=== PATIENT | female | born 1995 | race Asian ===

== ENCOUNTER 2017-02-09 07:11 | Inpatient (IN) | payer OTHER ==
[~2017-02-09] VITALS: Ht 157.5 cm; Wt 86.7 kg
[2017-02-09] VITALS (11 sets, daily range): BP systolic 102–121; BP diastolic 62–70
[2017-02-09] MEDS: miSOPROStol 50 MCG 1/2 TAB (S0191) PO SCH ×2 (10:18→14:21)
[2017-02-09 10:44] LABS: MEAN CORPUSCULAR HGB CONC 34.4 g/dl (32.0-36.5); MEAN CORPUSCULAR VOLUME 87.4 fl (80.0-96.0); RED CELL DISTRIBUTION WIDTH 19.5 % (11.5-14.5); WHITE BLOOD COUNT 5.5 K/mm3 (4.0-10.0)
[2017-02-09] MEDS ORDERED: OXYTOCIN DRIP 30 UNITS in APPROPRIATE DILUENT 1 EA IV SCH (21:45)
[2017-02-09] MEDS ORDERED: diphenhydrAMINE 25 MG CAP PO PRN (22:45)
[2017-02-10] VITALS (48 sets, daily range): BP systolic 94–146; BP diastolic 50–85
[2017-02-10] MEDS ORDERED: BUTORPHANOL 2 MG/ML INJ (J0595) IV ONE (02:30)
[2017-02-10] MEDS ORDERED: PROMETHAZINE INJ 25 MG/ML VIAL (J2550) IV ONE ×2 (02:30→10:45)
[2017-02-10] MEDS ORDERED: NALBUPHINE HCL 10 MG/ML AMP (J2300) IV ONE (10:45)
[2017-02-10] MEDS: LR 1,000 ML IV SCH ×2 (13:15→17:26)
[2017-02-10] MEDS ORDERED: FENTANYL 2MCG/ML ROPIVACAINE 0.2% IN 0.9% NACL 200ML IVBAG As Ordered ONE (16:44)
[2017-02-10] MEDS ORDERED: EPIDURAL/PCA KEYS XX PRN (18:00)
[2017-02-10] MEDS ORDERED: LACTATED RINGER'S 1000 ML IV PRN (18:00)
[2017-02-10] MEDS ORDERED: NALOXONE INJ 0.4 MG/1 ML VIAL (J2310) IV PRN (18:00)
[2017-02-10] MEDS ORDERED: EPIDURAL COMMENT XX SCH (18:00)
[2017-02-10] MEDS ORDERED: ONDANSETRON 4MG/2ML VIAL (J2405) IV PRN (18:00)
[2017-02-10] MEDS ORDERED: ePHEDrine SULFATE 25 MG/5 ML(5MG/ML) SYRINGE IV PRN (18:00)
[2017-02-10] MEDS ORDERED: diphenhydrAMINE INJ 50MG/ML VIAL (J1200) IV PRN (18:00)
[2017-02-10] MEDS ORDERED: REFRIGERATOR IV KEYS XX PRN (18:00)
[2017-02-10] MEDS ORDERED: FENTANYL/ROPIVACAINE/NACL BAG 200 ML EPIDURAL SCH (18:00)
--- NOTE | 2017-02-10 20:24 | IPNPDOC ---
Text Note Date of Service The patient was seen on 02/10/17. NOTE SBAR from MAJ Ferrell at ~1900. IOL at 41 wks. Doing well with an epidural On 14 mu/min pitocin Cx /-2, SROM clr fluid noted with check Doing well, will check in 2-3 hrs Sessions VS,Sherin, I+O VS, Sherin, I+O Vital Signs Date Time Temp Pulse Resp B/P (MAP) Pulse Ox O2 Delivery O2 Flow Rate FiO2 02/10/17 18:51 75 18 97/53 (68) 02/10/17 17:56 99.4 SESSIONS,ALENA Julien MD Feb 10, 2017 20:24
--- NOTE | 2017-02-10 23:04 | IPNPDOC ---
Text Note Date of Service The patient was seen on 02/10/17. NOTE NST Cat 1, reg ctx's. Pit at the same level. Cx unchanged, arch and pelvic outlet very narrow IUPC placed D/W the pt that I am concerned due to her pelvic exam about labor progression RN to incr the pitocin, OK to go >20, will check in 4 hrs, or sooner if 2 hrs of adeq MVU's obtained. Sessions VS,Sherin, I+O VSSheirn, I+O Vital Signs Date Time Temp Pulse Resp B/P (MAP) Pulse Ox O2 Delivery O2 Flow Rate FiO2 02/10/17 18:51 75 18 97/53 (68) 02/10/17 17:56 99.4 SESSIONS,ALENA Julien MD Feb 10, 2017 23:04
[2017-02-11] VITALS (25 sets, daily range): BP systolic 86–115; BP diastolic 50–66
[2017-02-11] MEDS ORDERED: ACETAMINOPHEN TAB 650MG DOSE (2X325MG) PO ONE (01:30)
--- NOTE | 2017-02-11 01:50 | IPNPDOC ---
Text Note Date of Service The patient was seen on 02/11/17. NOTE NST Cat 1. Has been on pitocin almost 24 hrs. Just given 650 mg tylenol for a T low 100's, not a fever. MVU's cont to be inadequate. Receptors may be flooded, will 1/2 her pit and see what happens with ctx strength/frequency. Sessions VS,Sherin, I+O VS, Sherin I+O Vital Signs Date Time Temp Pulse Resp B/P (MAP) Pulse Ox O2 Delivery O2 Flow Rate FiO2 02/10/17 18:51 75 18 97/53 (68) 02/10/17 17:56 99.4 I&O- Last 24 Hours up to 6 AM 02/11/17 05:59 Intake Total 1000 ml Output Total 1250 ml Balance -250 ml SESSIONS,ALENA Julien MD Feb 11, 2017 01:50
--- NOTE | 2017-02-11 03:16 | IPNPDOC ---
Text Note Date of Service The patient was seen on 02/11/17. NOTE Feeling more pressure NST Cat 1 Cx 8/100/0, cx mostly on the right recheck in 2 hrs, sooner prn Sessions VS,Sherin, I+O VSSherin, I+O Vital Signs Date Time Temp Pulse Resp B/P (MAP) Pulse Ox O2 Delivery O2 Flow Rate FiO2 02/10/17 18:51 75 18 97/53 (68) 02/10/17 17:56 99.4 I&O- Last 24 Hours up to 6 AM 02/11/17 06:00 Intake Total 1000 ml Output Total 1250 ml Balance -250 ml SESSIONS,ALENA Julien MD Feb 11, 2017 03:16
--- NOTE | 2017-02-11 06:39 | IPNPDOC ---
Text Note Date of Service The patient was seen on 02/11/17. NOTE NST Cat 1, MVU's improved over last few hours, more periods of adequacy than not Cx with AL/100/+1/OP, confirmed by TAUS (both orbits noted at straight OP) a/p: Long disc with pt, I am not optimistic of her chances at vaginal delivery with the shape of her pelvis and now also OP. I will allow her to push for 30-60 min to see if the lip disappears, but if does not happen and if significant descent not noted, then will recommend a Primary and avoid 3-4 hrs pushing that would increase her risk of complications with ( deep arrest/inability to deliver the head/uterine incision extensions, etc). Sessions VS,Sherin, I+O VSSherin, I+O Vital Signs Date Time Temp Pulse Resp B/P (MAP) Pulse Ox O2 Delivery O2 Flow Rate FiO2 02/10/17 18:51 75 18 97/53 (68) 02/10/17 17:56 99.4 I&O- Last 24 Hours up to 6 AM 02/11/17 06:00 Intake Total 1000 ml Output Total 1250 ml Balance -250 ml SESSIONS,ALENA Julien MD Feb 11, 2017 06:39
[2017-02-11] MEDS ORDERED: BICITRA 30ML SOLN UDC PO ONE (08:00)
[2017-02-11] MEDS: PRENATAL VITAMINS CHEWABLE TABLET PO SCH (09:00)
[2017-02-11] MEDS ORDERED: dexameTHASONE 4 MG/ML 1ML VIAL (J1100) As Ordered ONE ×2 (09:07→09:14)
[2017-02-11] MEDS ORDERED: SODIUM BICARBONATE 8.4% INJ 50 ML SYRINGE As Ordered ONE (09:07)
[2017-02-11] MEDS ORDERED: MORPHINE PRES-FREE INJ 10 MG/10 ML VIAL (J2274) As Ordered ONE (09:07)
[2017-02-11] MEDS ORDERED: ONDANSETRON 4MG/2ML VIAL (J2405) As Ordered ONE ×2 (09:07→09:14)
[2017-02-11] MEDS ORDERED: LIDOCAINE 2% W/EPIN INJ 20ML **PRES FREE As Ordered ONE ×2 (09:07→09:19)
[2017-02-11] MEDS ORDERED: OXYTOCIN INJ 10 UNITS/ML VIAL (J2590) As Ordered ONE (09:07)
[2017-02-11] MEDS ORDERED: KETOROLAC 60 MG/2 ML VIAL (J1885) As Ordered ONE (09:07)
[2017-02-11] MEDS ORDERED: METOCLOPRAMIDE INJ 10MG/2ML VIAL (J2765) As Ordered ONE (09:14)
[2017-02-11] MEDS ORDERED: NALBUPHINE HCL 10 MG/ML AMP (J2300) IV PRN ×2 (09:15→10:15)
[2017-02-11] MEDS ORDERED: NALOXONE INJ 0.4 MG/1 ML VIAL (J2310) IV PRN ×2 (09:15)
[2017-02-11] MEDS ORDERED: METOCLOPRAMIDE INJ 10MG/2ML VIAL (J2765) IV PRN ×2 (09:15→10:00)
[2017-02-11] MEDS ORDERED: ONDANSETRON 4MG/2ML VIAL (J2405) IV PRN ×2 (09:15→10:15)
[2017-02-11] MEDS: LR 1,000 ML IV SCH ×2 (09:49→19:04)
[2017-02-11] MEDS: OXYTOCIN DRIP 30 UNITS in APPROPRIATE DILUENT 1 EA IV SCH ×2 (09:49→13:49)
[2017-02-11] MEDS ORDERED: OXYTOCIN 30 UNITS IN 0.9% NaCl 500ML IV BAG (J2590) As Ordered ONE (09:52)
[2017-02-11] MEDS ORDERED: METHYLERGONOVINE MALEATE 0.2 MG/ML VIAL (J2210) IM ONE (10:00)
[2017-02-11] MEDS ORDERED: MEASLES,MUMPS,RUBELLA VACCINE INJ (MMR-II) (90707) SC SCH (10:00)
[2017-02-11] MEDS ORDERED: RHOGAM 300 MCG (1500 IU) INJ (J2790) IM SCH (10:00)
[2017-02-11] MEDS ORDERED: PERCOCET 5MG/325MG TAB PO PRN (10:00)
[2017-02-11] MEDS ORDERED: MEPERIDINE INJ 25 MG/ML VIAL (J2175) IV PRN (10:15)
[2017-02-11] MEDS ORDERED: fentaNYL 100 MCG/2 ML INJECTION (J3010) IV PRN (10:15)
[2017-02-11] MEDS ORDERED: LR 1,000 ML IV SCH (10:15)
[2017-02-11] MEDS: PERCOCET 5MG/325MG TAB PO PRN ×2 (12:44→18:12)
[2017-02-11] MEDS: KETOROLAC 30 MG/ML VIAL (J1885) IV SCH ×2 (15:07→21:02)
[2017-02-11] MEDS: DOCUSATE SODIUM 100 MG CAP PO SCH (21:02)
[2017-02-12] MEDS: LR 1,000 ML IV SCH ×2 (01:49→09:49)
[2017-02-12 02:15] VITALS: BP 93/55
[2017-02-12] MEDS: KETOROLAC 30 MG/ML VIAL (J1885) IV SCH ×2 (02:42→08:52)
[2017-02-12 06:05] VITALS: BP 92/50
[2017-02-12 07:41] LABS: MEAN CORPUSCULAR HEMOGLOBIN 29.4 pg (27.0-33.0); MEAN CORPUSCULAR HGB CONC 33.6 g/dl (32.0-36.5); MEAN CORPUSCULAR VOLUME 87.5 fl (80.0-96.0); RED CELL DISTRIBUTION WIDTH 19.3 % (11.5-14.5); WHITE BLOOD COUNT 6.9 K/mm3 (4.0-10.0)
[2017-02-12] MEDS: PRENATAL VITAMINS CHEWABLE TABLET PO SCH (08:52)
[2017-02-12] MEDS: DOCUSATE SODIUM 100 MG CAP PO SCH ×2 (08:52→21:45)
[2017-02-12 10:00] VITALS: BP 102/58
[2017-02-12] MEDS ORDERED: SLF 3 ML SYR IV PRN (10:00)
--- NOTE | 2017-02-12 11:25 | IPNPDOC ---
Text Note Date of Service The patient was seen on 02/12/17. NOTE POD1 prog note States feeling well, no complaints. No heavy VB. Pain controlled. Voiding, ambulatory. Bonding well and breast feeding well. VSSAF CTAB RRR Inc CDI, bandage off, not soaked Ut at U-2, firm Ext no CCE CBC appropr this AM a/p: Doing well. routine postop care. Sessions Sherin WILDER, I+O Sherin OWENS I+O Laboratory Tests 02/12/17 07:30 Red Blood Count 2.90 L, Mean Corpuscular Volume 87.5, Mean Corpuscular Hemoglobin 29.4, Mean Corpuscular Hemoglobin Concent 33.6, Red Cell Distribution Width 19.3 H Vital Signs Date Time Temp Pulse Resp B/P (MAP) Pulse Ox O2 Delivery O2 Flow Rate FiO2 02/12/17 10:00 96.7 96 18 102/58 (73) 99 02/12/17 06:05 Room Air I&O- Last 24 Hours up to 6 AM 02/13/17 06:00 Intake Total 1001 ml Output Total 425 ml Balance 576 ml SESSIONS,ALENA Julien MD Feb 12, 2017 11:25
[2017-02-12] MEDS: SLF 3 ML SYR IV SCH ×2 (15:29→22:00)
[2017-02-12] MEDS: IBUPROFEN 800 MG TAB PO SCH (17:28)
[2017-02-12 18:00] VITALS: BP 111/59
[2017-02-12 22:19] VITALS: BP 107/62
[2017-02-13] MEDS: IBUPROFEN 800 MG TAB PO SCH ×2 (02:01→08:45)
[2017-02-13] MEDS: SLF 3 ML SYR IV SCH (06:00)
[2017-02-13 06:08] VITALS: BP 106/67
[2017-02-13] MEDS: PRENATAL VITAMINS CHEWABLE TABLET PO SCH (08:43)
[2017-02-13] MEDS: DOCUSATE SODIUM 100 MG CAP PO SCH (08:46)
--- NOTE | 2017-02-13 09:59 | IPNPDOC ---
Text Note Date of Service The patient was seen on 02/13/17. NOTE POD2 prog note States feeling well, no complaints. No heavy VB. Pain controlled. Voiding, ambulatory. Bonding well and breast feeding well. VSSAF CTAB RRR Inc CDI Ut at U-2, firm Ext no CCE CBC appropr yesterday a/p: Doing well. D/C home Sessions VS,Sherin, I+O VS, Sherin, I+O Vital Signs Date Time Temp Pulse Resp B/P (MAP) Pulse Ox O2 Delivery O2 Flow Rate FiO2 02/13/17 06:08 98.4 77 18 106/67 (80) 02/12/17 18:00 99 02/12/17 06:05 Room Air SESSIONS,ALENA Julien MD Feb 13, 2017 09:59
--- NOTE | 2017-02-13 10:05 | DS.PDOC ---
Discharge Summary General Date of Admission Feb 09, 2017 at 07:11 Date of Discharge [id number] Discharge Summary PROCEDURES PERFORMED DURING STAY: Primary delivery after failed induction ADMITTING DIAGNOSIS: 1. Induction of labor DISCHARGE DIAGNOSES: 1. Healthy 2. Arrest of dilation, occiput posterior 3. Narrow pubic arch HOSPITAL COURSE: Admitted for induction and made it to 9.5 cm dilation and she stopped dilating. Has a very narrow pubic arch and infant was O.P. Attempted to push past the bit of cervix and no success. uncomplicated, see operative note. DISCHARGE MEDICATIONS: Motrin, Percocet, Colace, Lanolin Physical exam: see note from this morning LABORATORY DATA: Please see below. ACTIVITY: as tolerated. Nothing in vagina for 6 weeks. No bathing for 4 weeks. No driving for 2 weeks. DIET: regular DISPOSITION:stable TIME SPENT ON DISCHARGE: Greater than 15 minutes. Sessions Vital Signs/I&Os Vital Signs Date Time Temp Pulse Resp B/P (MAP) Pulse Ox O2 Delivery O2 Flow Rate FiO2 02/13/17 06:08 98.4 77 18 106/67 (80) 02/12/17 18:00 99 02/12/17 06:05 Room Air Allergies Coded Allergies: No Known Allergies (Unverified , 02/09/17) ALENA HDZ MD Feb 13, 2017 10:04
[2017-02-13] MEDS ORDERED: PRENTAB9 PO (10:30)
[2017-02-13] MEDS ORDERED: COLA100C5 PO (10:30)
[2017-02-13] MEDS ORDERED: IBUP-1114 PO (10:30)
[2017-02-13] MEDS ORDERED: OXYC1TAB23 PO (10:30)
--- NOTE | 2017-02-13 11:37 | RO ---
DATE OF PROCEDURE: 02/11/2017 PREPROCEDURE DIAGNOSES: Arrest of dilatation at anterior lip, occiput posterior position, very narrow pubic arch. POSTPROCEDURE DIAGNOSES: Arrest of dilatation at anterior lip, occiput posterior position, very narrow pubic arch. PROCEDURE: Primary low transverse section. SURGEON: Dr. Gómez Bang SUPERVISOR FINISHING: ANESTHESIA: Epidural. ESTIMATED BLOOD LOSS: 600 mL. FLUIDS REPLACED: 1500 mL of lactated ringers. PREOPERATIVE ANTIBIOTICS: Ancef 2 grams IV. SPECIMENS: None. INDICATION: Patient was admitted for a postdate induction approximately 2 days prior, all of which was uncomplicated other than a slow progress getting into active labor. Once in active labor she made steady progressive change to anterior lip at which point her progression stopped despite adequate MVUs and IPC for the last 1 1/2 to 2 hours. We pushed for approximately 45 minutes trying to push pass the anterior lip, however, I was not optimistic that this would be successful due to the shape of her pelvis especially her very narrow pubic arch. Of note I also confirmed occiput posterior with an ultrasound which makes it even more difficult to delivery vaginally in this clinical situation. After we were unable to push pass the anterior lip and expressing my concerns the patient strongly desired a primary delivery and I recommended this as well. Informed consent was obtained and the patient was taken to the operating room with an IV in place. DESCRIPTION OF PROCEDURE: Patient was placed in the dorsal lithotomy position with a leftward tilt. Her epidural was bolused. She already had a Alejandre catheter in place and post epidural bolus counts were normal. She was prepped and draped in a normal sterile fashion. A Pfannenstiel skin incision was carried down to the layer of the fascia which was nicked in the midline and extended bilaterally the extent of the skin incision. Thu clamps were used to elevate the superior and inferior aspects of the fascial incision and underlying rectus muscles were dissected off sharply. The peritoneum was breached with the surgeon's digit and a quick expression revealed no scar tissue. I then did a gentle stretching maneuver that created an adequate peritoneal window. Bladder blade was placed, bladder flap was created and low transverse uterine incision was performed. Amniotomy showed clear fluid. The uterine incision was stretched to adequacy, and the occiput posterior was then delivered through the incision without difficulty with the head flexed and uterine pressure assisting. The was vigorous with good tone, spontaneous cry, and good color. Cord is clamped times two and cut. The was shown to the parents and handed off to the waiting resuscitation team. Cord blood was obtained. Pitocin was started and after the uterus was noted to be firming up, I removed the placenta without difficulty using traction and the cord. The uterus was delivered through the abdomen, wrapped in a warm sponge, and cleared of all clots and debris times two with dry sponges. The uterus incision was closed from left to right with a running locked suture of #0 Vicryl. At the right aspect, there was an inferior direction extension approximately 1-2 cm long which was incorporated into the primary closure. I then imbricated with the #0 Monocryl from left to right to good effect. Irrigated behind the uterus the uterus was returned to the abdomen and I did two more [id number] sutures at the right aspect of the uterine incision due to a small amount of oozing present. Hemostasis was obtained. The pericolic gutters were cleared of all clots and debris. The fascia was then closed in a running suture of 0 Vicryl from left to right without difficulty. I then broke scrub and ran to assist a concrete block layer with a clinical situation which could not wait and the OR team put a moist sponge in the incision and covered it with a blue towel. In exactly 10 minutes, I returned to the bedside, re-scrubbed, re-draped, re-gloved, and finished the case. I copiously irrigated the subcutaneous tissue which was made to be hemostatic as well then closed this potential space with a running #2-0 Vicryl. The skin was then closed with the running subcuticular #4-0 Monocryl from left to right without difficulty. Skin was reinforced with Steri-Strips and a pressing dressing was placed over the incision. I froglegged the patient, did a bimanual exam and cleared the vagina and cervix of small amount of clots and debris. All counts were correct including sponge, needle and instruments.
[2017-02-13] MEDS: PERCOCET 5MG/325MG TAB PO PRN (13:15)
== END 2017-02-13 14:00 | disposition home or self-care (01) | DRG 766 ==
LOC: M LDI 07:11 → M OBS 02-11 11:50
PROVIDERS: ADMIT Obstetrics & Gynecology; ATTEND Obstetrics & Gynecology
PROC: 3E0DXGC Introduction of Other Therapeutic Substance into Mouth and Pharynx, External Approach (ICD-10-PCS; 2017-02-09)
PROC: 10D00Z1 Extraction of Products of Conception, Low, Open Approach (ICD-10-PCS; principal; 2017-02-09 08:17)
DX: O48.0 Post-term pregnancy (principal); Z37.0 Single live birth; Z3A.41 41 weeks gestation of pregnancy; O62.0 Primary inadequate contractions; O64.0XX0 Obstructed labor due to incomplete rotation of fetal head, not applicable or unspecified